=== PATIENT | male | born 1935 | race American Indian/Alaskan Native ===

== ENCOUNTER 2023-12-05 12:00 | Outpatient (RCR) | payer OTHER, SELFPAY ==
--- NOTE | 2023-09-16 19:19 | HP.SP.EV_ITS ---
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 He served as historian. Mo states that difficulties with his swallowing have progressed over the past year. He says he feels like the food is going different directions and he has to cough about every other bite at all meals. He says moister foods tend to go better. He says he has a build up of saliva that when he coughs it comes up frothy at times. He denies a hx of reflux , heart conditions, pulmonary disorders (including PNA and COPD), and any dx neurological disorders. 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 Patient presenting with finger tips curled up and weak on the middle, ring, and pinky fingers of both hands - Pt endorsing that it is often difficult for him to grasp cups or complete any fine motor movements. He states this has progressed slowly and cannot pin point when it started happening. Pt stating that he has told Dr. Bello because he felt it was d/t aging. 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 Smoking Status: Former smoker Diagnosis Diagnosis: Dysphagia, unspecified Pain Is pain an issue with your current prescribed condition?: No Personal Preferred language: Montserratian Objective Oralfacial Myology Breathing Breathing: Nose Masseters Masseters: WNL Mentalis Mentalis: WNL Jaw Jaw Stability: WNL Tongue/Mandible Differentiation Horizontal: WNL Lateralization: WNL Vertical: WNL Hard Palate Hard palate: Normal arch Velum Velum: WNL Dentition Dentition: Primary Lips Lips: Competent Posture: Closed Retraction: WNL Rounding: WNL Swallow Swallow: Normal Bolus Bolus Collection: WNL Subjective Dysphagia Symptoms Reported Symptoms/Problems with: Difficulty Swallowing Solids Current Diet Solids Current Diet: Regular Current Diet Liquids Current Liquids: Thin Objective Dysphagia Administered by Administered by: Self Thin Liquids Administred via: Cup Oral Transit: WNL Bolus clearance: fully cleared Cough: immediate, throat clear and productive Pharyngeal phase: suspect pharyngeal deficits Comments: Pt consuming 3 oz of water via cup sip with auditory swallow gulp observed along with immediate throat clearing. Pt also aware of the auditory swallow and confirmed this occurs often at home. He states that he doesn't usually have to cough with his liquids despite the immediate throat clearing observed today. The drink was the last PO intake for the patient today and he persisted with at least 5 throat clears afterwards. Soft & Bite sized (Mechanical) Administered via: Spoon Oral Preparation: WNL Oral Transit: WNL Bolus clearance: fully cleared Cough: delayed, weak reflexive cough, throat clear and productive Pharyngeal phase: suspect pharyngeal deficits Comments: Pt consuming a mixed soft and bite sized consistency via a fruit cup with Jello. Mastication, oral transit, and swallow initiation all appeared to be WNL. However, Pt presenting with auditory swallow along with immediate throat c learing in 4 of the 7 bites which may be indicative of pharyngeal deficits. Regular Oral Preparation: WNL Oral Transit: WNL Bolus clearance: significant clearance/minimal residue Gagging: No Cough: delayed and throat clear Pharyngeal phase: suspect pharyngeal deficits Comments: Pt consuming trail mix with nut medley and M&Ms, beef stick, and Veggie Straws with functional mastication, bolus manipulation, and oral transit to initiate swallow. Pt initially trialing the Veggie straws and within the first few bites demonstrated 1-2 instances of signs/symptoms of penetration/aspiration via weak throat clearing. However, following consumption of half the bag, along with 4-5 bites of the trail mix and the whole beef stick, Pt beginning to show signs of pen/asp via immediate and persistent stronger throat clearing. Pt endorsing feeling like something was in his throat. Swallowing Impairment Contributing Factors to Swallowing Impairment: Other Other: Quick rate of intake Impact Impact on Safety & Functioning: Risk for Aspiration Recommendations Swallowing Treatment: Yes Diet Texture Recommendations Solids: Regular (Level 7) Liquids: Thin (Level 0) Safety Saftey Precautions/Swallowing Recommendations (Check all that Apply): 1 to 1 Distant Supervision, Reduce Distractions, Upright Position at Least 30 Minutes After Meals, Small Sips & Bites when Eating and Multiple Swallows Results Swallowing Within Normal Limits: No Swallowing Diagnosis: Dysphagia Unspecified (R13.10) Reference: Neuro-QoL instrument Radiation Oncology Patient Plan Plan Plan: Will rx Pt for skilled outpatient tx to address deficits in suspected oropharyngeal dysphagia. Following participation in objective instrumental evaluation, Pt would likely benefit from training and education re: process of thickening liquids (if recommended), diet tolerance checks, and swallowing exercises to aid in oropharyngeal strengthening. Without skilled intervention, Pt is at risk for consuming a restrictive diet putting him at risk for aspiration pneumonia and atrophy of laryngeal musculature. Recommendations Treatment Warranted: Yes Treatment Warranted: Dysphagia Comment: Participation in instrumental swallow evaluation = FEES (fiberoptic endoscopic evaluation of swallow) Progress Prognosis: Good Frequency Frequency: 1x/Week Duration: 2 Months Goals that are Established Determination:: Goals will be added/modified as deemed necessary and appr opriate. Therapy will be discontinued when results of re-evaluation indicate therapy is no longer needed or lack of progress has been documented. Goal #1-5 Goal #1: Mo will participate in Fiberoptic Endoscopic Evaluation of Swallow (FEES) to objectively assess Pt's oropharyngeal swallow function to determine the least restrictive means of nutrition and accurately recommend a home exercise program along with compensatory strategies. Education Patient has Indicated that the Following Identified Educational Needs: None The Patient has indicated that they have no educational or learning abilities that may effect their care.: Yes Patient Instruction Patient Education: Diagnosis, Treatment Plan and Goals Person Taught: Patient Teaching Method: Discussion and Demonstration Response to teaching: Return demonstration and Verbalize understanding
--- NOTE | 2023-11-10 17:32 | ST ---
Figure 1. Evidence of frothy, white secretions prior to PO intake located in the vallecula, lateral pharyngeal surfaces, and pyriform sinus. Also shown is thick, white mucous superior to the UES and in the interarytenoid space. Pt showing inconsistent reliability on stating whether or not he sensed these secretions. Figure 2. Severe, Grade IV pharyngeal residue following 2 independent swallows of one bite of a sausage, egg, cheese, and Dominican muffin sandwich. He benefited from a cued cough and re-swallow along with a liquid wash to clear residue.
--- NOTE | 2023-11-10 17:58 | HP.SPFEES ---
FEES Patient Information Date of Evaluation: 11/03/23 Time of Evaluation: 10:00 DIAGNOSIS:: Moderate Oropharyngeal Dysphagia Referring Physician: Humberto Bello Staff Providing this Care/Treatment:: ROBBY Direct Billable Minutes: 120 Subjective: Subjective:: Bonilla Raymundo is a 88 year old male who presents to [facility] Therapy for participation in FEES procedure this date to objectively assess his swallow function. At his initial bedside evaluation, Torito stated that difficulties with his swallowing have progressed over the past year. He says he feels like the food is going different directions and he has to cough about every other bite at all meals. He says moister foods tend to go better. He says he has a build up of saliva that when he coughs it comes up frothy at times. He continues to deny a hx of reflux, heart conditions, pulmonary disorders (including PNA and COPD), and any dx neurological disorders. His PO trials at his initial evaluation revealed signs and symptoms of potential penetration/aspiration so it was determined he would benefit from a FEES to objectively assess his swallow function. Current Diet: Drinks/Liquids:: Thin Foods:: Regular Medication Administration:: orally Respiratory Status: Observation:: At rest, Torito's O2 status was 91%. Dentation/Oral Hygiene: Observations:: Pt with WFL primary dentition. Did however observe evidence of WHITE COATING ON POSTERIOR LINGUAL SURFACE which may be consistent with THRUSH. Vocal Quality: Observations:: WNL Comments:: Continued to be WNL throughout the study despite mucous covering the surface of vocal folds. Cognition: Observations:: WNL Dysphagia: TX/DX History:: No Fiberoptic Endoscope: Size: 3.4 mm Nare:: Right Comments: The scope was passed without incidence through the right nare. Pt tolerating the procedure well. Position During FEES: Position During FEES:: Slightly reclined Location: In Chair Anatomy: + Velopharyngeal Port Observations Movement: Yes +Nasopharynx Observations Tissue Description: [place] and Moist Location: Posterior +Oropharynx Observations: Tissue Description: Moist and Simmons red Location: Posterior +Hypopharynx Observation: Tissue Description: Moist and Simmons red Location: Posterior Comments:: - Pt sitting with back rest of chair at 90 degrees, however d/t Pt's body habitus, Pt did appear partially reclined during procedure. - Pt's overall tissue structure appeared edematous in nature including the epiglottis. Tissue appearing with a cobblestone pattern which may be indicative of GERD or LPR. Passing through the velopharyngeal port also revealed a significantly elongated uvula which also appeared affected with edema. During the procedure the uvula would push the scope off center due to the length. It did not appear to impact the quality of the study, however would suspect the elongated uvula may be indicative of potential sleep apnea or other pulmonary disorders because at times the uvula would contact the nasopharynx partially closing off his velopharyngeal port. Recall his resting O2 is 91%. Secretions: Description:: Thin, Thick, White and Other Comment:: Prior to initiation of PO trials, Pt demonstrated significant secretions in the oropharynx as well as hypopharynx. In the oropharynx, Pt presented with thin, white, frothy secretions coating the base of tongue, aryepiglottic folds, vallecula, and the anterior posterior pharyngeal wall. In the hypopharynx, Pt presents with thick, white, mucous-like secretions coating the pyriform sinus and the interarytenoid space. At times, the mucous secretions appeared to be contacting the vocal fold although this did not affect his vocal quality. Pt benefited from multiple drinks prior to solid PO trials to assist in clearing the secretions. He benefited the most from a warmer water drink as cold water seemed ineffective. Additionally, following the warm water trials, he benefited from a cued hard cough and reswallow to assist in clearing the secretions. Unable to definitively rule out aspiration of secretions. Location:: Oropharynx, Hypopharynx and Diffuse Phonation: Arytenoid Adduction & Abduction: Pt participated in vocal tasks to assess adduction and abduction which revealed his vocal cords functioning WNL. Vocal Folds:: WNL Penetration-Aspiration Scale Penetration-Aspiration Scale Swallowing: :: ? Oral phrase is primarily marked by? o Effective mastication for softer solid consistencies. When presented with a mixed consistency such as juice with a mandarin orange or multiple components of a sandwich (egg, muffin, cheese, sausage), Mo?s chewing appeared uncoordinated with the bolus being only partially chewed before transfer. o Weak anterior posterior transfer of bolus evidence by lingual pumping and visualized greater physical effort for regular consistency textures. o Poor bolus control evidenced by loss of bolus to pyriform sinus prior to swallow trigger. o Abnormal length of uvula extending to base of tongue and at times appearing to partially close off the nasopharynx. ? Pharyngeal phase is primarily marked by? o Evidence of frothy secretions covering vallecula and base of tongue along with thick, mucous secretions superior to the UES in the pyriform sinus and the interarytenoid space prior to PO intake. Both were difficult clear with Pt finally benefiting from warm liquid wash. Even so, mucous secretions reappeared throughout the study. o Swallow initiation starting with escaped bolus located in the pyriform sinus. Pt presenting with intermittently coughing when he would occasionally sense the bolus on the true vocal folds. Contact with the true folds often occurred with mixed texture consistencies (e.g., juice with mandarin orange). o Severely limited laryngeal elevation and hyoid excursion coupled with severely weak pharyngeal constriction and tongue base retraction evidenced by pink out or green out on camera (full, WNL constriction yields a white out) as well as severe Grade IV residue (Grade IV = aspiration of > 10 % of the bolus, reduced cough reflex) in the vallecula, on superior and inferior surfaces of pharyngeal wall, and in the laryngeal vestibule with regular solid textures. See photo below. In softer solids or puree textures, residue was min to moderate on the same tissue structures. o Suspected mild severity of UES duration and distension given the reduction of residue in softer, puree, and liquid textures. o Overall poor coordination of swallowing musculature, even with secretion management, with Pt?s anatomy having uncoordinated movements while trying to initiate a swallow. FEES camera was in constant motion throughout the procedure even though Pt appearing to physically be sitting still. ? Esophageal phase is primary marked by? o No observed retrograde flow through the UES 11/10/23 17:32 - Speech Therapy by Amanda Smith MS, [facility] Acct Num: [id number] : 1935 Patient Age: 88 SEE SPEECH THERAPY NOTE FOR FIGURES Figure 1. Evidence of frothy, white secretions prior to PO intake located in the vallecula, lateral pharyngeal surfaces, and pyriform sinus. Also shown is thick, white mucous superior to the UES and in the interarytenoid space. Pt showing inconsistent reliability on stating whether or not he sensed these secretions. Figure 2. Severe, Grade IV pharyngeal residue following 2 independent swallows of one bite of a sausage, egg, cheese, and Frisian muffin sandwich. He benefited from a cued cough and re-swallow along with a liquid wash to clear residue. Initiation:: Piriform Sinus Swallowing Trials: Swallowing Trials Results Below: Thin Liquid: Trial 1: #1 Water -- cold temp. Administered:: via a straw Strategy: Cough After Swallow Aspiration: No - aspiration Residue Location: Residue Location Piriform Sinuses PAS Score: PAS Score *2 Trial 2: #2 Water -- warm temp to clear mucous secretions Administered:: via a straw Strategy: Cough After Swallow Aspiration: No - aspiration Residue Location: Residue Location Piriform Sinuses PAS Score: PAS Score *2 Trial 3: #9 Water - room temp - unable to perform effortful swallow Administered:: via a straw Strategy: Effort Swallow Aspiration: No - aspiration PAS Score: PAS Score *2 Puree Texture: Trial 1: #3 Applesauce (two trials) Administered:: via a teaspoon Strategy: Liquid Wash and Cough After Swallow Aspiration: No - aspiration Residue Location: Residue Location Piriform Sinuses PAS Score: PAS Score *4 Trial 2: #5 Applesauce (one trial) -- Chin tuck not effective -- Poor bolus hold Strategy: Chin Tuck Residue Location: Residue Location Piriform Sinuses PAS Score: PAS Score *4 Minced & Moist Texture: Trial 1: #4 Mandarin Ciales (two trials) Administered:: via a teaspoon Strategy: Cough After Swallow Aspiration: No - aspiration Residue Location: Residue Location Piriform Sinuses PAS Score: PAS Score *5 Regular Texture: Trial 1: #6 Sausage, Egg McMuffin (required multiple cues to clear. See Figure 2) Strategy: Liquid Wash and Cough After Swallow Aspiration: No - aspiration Residue Location: Residue Location Laryngeal Vestibule PAS Score: PAS Score *5 Trial 2: #7 Frisian Muffin alone Strategy: Liquid Wash and Cough After Swallow Residue Location: Residue Location Laryngeal Vestibule PAS Score: PAS Score *4 Trial 3: #8 Egg alone Strategy: Liquid Wash and Cough After Swallow Aspiration: No - aspiration Residue Location: Residue Location Piriform Sinuses PAS Score: PAS Score *4 Trial 4: #10 Sausage alone (attempt at throat clear, ineffective. Cough better) Strategy: Liquid Wash and Cough After Swallow Aspiration: No - aspiration Residue Location: Residue Location Piriform Sinuses PAS Score: PAS Score *4 Strategies Comments:: ? Strategy Effectiveness o Chin Tuck = INEFFECTIVE, PATIENT UNABLE TO PERFORM D/T BODY HABITUS o Effortful Swallow = INEFFECTIVE, PATIENT UNABLE TO PERFORM despite max cues o Throat Clear = INEFFECTIVE, NOT STRONG ENOUGH o Cough with Re-swallow = mostly EFFECTIVE with verbal cuing (Pt did not reliably sense residue and initiate strategy independently Recommendations: Recommended Diet Grade & Liquid Drinks/Liquids:: Thin Foods:: Soft & bite size Supervision/Cues: Distant Recommended Compensatory Strategies: - Cough with reswallow followed by a liquid wash after each PO bite - Sitting as upright as possible during PO intake - Using a warmed water drink in the morning, prior to all PO intake, and in the evening before bed to attempt to clear mucous settling in the hypopharynx. - Elevate HOB at night when sleeping or when taking naps. Recommend Repeat Fiberoptic Endoscopic Evaluation of Swallowing: Yes Comment: Pt would benefit from an MBSS to objectively assess swallow function. He would also benefit from future imaging (FEES or another MBSS) following attempts at implementing a HEP. Pt may have difficulty implement oropharyngeal strengthening exercises, however would like to attempt to improve swallow function along with changes to diet consistencies and implementation of compensatory strategies if Pt should agree to POC. Prognosis: Prognosis: Fair Frequency: Frequency: 1x/Week Duration: 3 Months Education: :: Significant education provided at the end of the procedure re: concern for aspiration/penetration of PO intake d/t severe weak pharyngeal contraction, tongue base retraction, and poor secretion management. Discussed trialing softer foods at home until returning for treatment sessions along with utilizing a throat clear/cough after PO intake, reswallowing, and then using a liquid wash to clear. Asked Pt to complete these strategies after each solid consistency bite d/t him not reliably sensing when there was residue. Education Completed: 1. Described result of evaluation. and 2. Pt understands evaluation & agrees with goals and treatment plan. Goals that are Established Determination:: Goals will be added/modified as deemed necessary and appropriate. Therapy will be discontinued when results of re-evaluation indicate therapy is no longer needed or lack of progress has been documented. Goal #1: Mo will participate in Fiberoptic Endoscopic Evaluation of Swallow (FEES) to objectively assess Pt's oropharyngeal swallow function to determine the least restrictive means of nutrition and accurately recommend a home exercise program along with compensatory strategies.
== END 2023-12-05 19:00 | disposition home or self-care (01) ==
LOC: SP 12:00
PROVIDERS: PCP Internal Medicine; Referring Provider Internal Medicine; Visit Provider Internal Medicine
DX: R13.12 Dysphagia, oropharyngeal phase (principal)
CPT/HCPCS: 92526; 92610; 92612

== ENCOUNTER → 2024-04-21 | Outpatient (CLI) | payer OTHER, SELFPAY ==
--- NOTE | 2024-04-21 08:35 | RAD_ITS ---
STUDY: X-RAY - ESOPHAGUS (BARIUM SWALLOW) WITH FLUOROSCOPY REASON FOR EXAM: Male, 88 years old. DYSPHAGIA TECHNIQUE: 51 fluoroscopic images view(s) of the esophagus were obtained following swallowing of barium. FLUOROSCOPY TIME (if supplied): (51 seconds) minutes/seconds. 59.7 mGy. COMPARISON: None. FINDINGS: There is no demonstrated esophageal foreign body. There is evidence of a small sliding or hernia with a weblike stenosis at the gastroesophageal junction. The patient ingested a 12 mm tablet of barium. The tablet entered the stomach without any difficulty. There is atherosclerotic calcification of the aortic arch with tortuosity of the descending aorta. Normal visualized pulmonary parenchyma. Prior fusion of the lower thoracic and upper lumbar spine. 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 Endoscopic correlation recommended. Electronically Signed: Chris Matthews MD at 9:42 EDT ,
== END | disposition home or self-care (01) ==
PROVIDERS: PCP Internal Medicine; Referring Provider Otolaryngology Otolaryngology/Facial Plastic Surgery; Visit Provider Otolaryngology Otolaryngology/Facial Plastic Surgery
DX: R13.10 Dysphagia, unspecified (principal)
CPT/HCPCS: 74221